=== PATIENT | male | born 1970 | race Caucasian/White ===

== ENCOUNTER 2019-08-20 05:07 | Inpatient (IN) | payer OTHER ==
[~2019-08-20] VITALS: Ht 182.9 cm; Wt 70.5 kg
[2019-08-20 05:28] LABS: BASO % 0 % (0-3); EOS % 0 % (0-3); HEMATOCRIT 44.3 % (39.0-53.0); HEMOGLOBIN 15.7 g/dL (13.0-17.5); LYMPH % 10 % (24-48); MEAN CORPUSCULAR HEMOGLOBIN 33 pg (25-35); MEAN CORPUSCULAR HGB CONC 35 g/dL (31-37); MEAN CORPUSCULAR VOLUME 94 fL (79-100); MONO # 0.4 x10^3/uL (0.0-1.1); MONO % 4 % (0-9); NEUT # 8.9 x10^3/uL (1.8-7.7); NEUT % 86 % (31-73); PLATELET COUNT 214 x10^3/uL (140-400); RED BLOOD COUNT 4.71 x10^6/uL (4.30-5.70); RED CELL DISTRIBUTION WIDTH 13.2 % (11.5-14.5); WHITE BLOOD COUNT 10.4 x10^3/uL (4.0-11.0)
--- NOTE | 2019-08-20 05:34 | PHYS DOC ---
General Adult EDM: Chief Complaint: HYPERTENSION HPI: HPI: Patient is a 48 year old male presenting to the ED with a chief complaint of numbness and tingling to his left upper extremity. Patient states that the symptoms started at 4:00 this morning. Patient states that he was at work and he went out for a small break when the symptoms started. Patient states that he has a history of high blood pressure but has not taken medication for the last 2 years as his PCP moved out of town. Patient denies chest pain, headache, fever, chills, nausea or vomiting. Patient does admit to being an active smoker and drinks alcohol frequently. (NINI ANN DO) Review of Systems: Review of Systems: Constitutional: Denies fever or chills. [] Eyes: Denies change in visual acuity. [] HENT: Denies nasal congestion or sore throat. [] Respiratory: Denies cough or shortness of breath. [] Cardiovascular: Denies chest pain or edema. [] GI: Denies abdominal pain, nausea, vomiting, bloody stools or diarrhea. [] : Denies dysuria. [] Neurologic: Complains of numbness and tingling in his left upper extremity (NINI ANN DO) Heart Score: Risk Factors: Risk Factors: DM, Current or recent (<one month) smoker, HTN, HLP, family history of CAD, obesity. Risk Scores: Score 0 - 3: 2.5% MACE over next 6 weeks - Discharge Home Score 4 - 6: 20.3% MACE over next 6 weeks - Admit for Clinical Observation Score 7 - 10: 72.7% MACE over next 6 weeks - Early Invasive Strategies (NINI ANN DO) HEART Score for Chest Pain: HEART Score for Chest Pain Response (Comments) Value History Moderately Suspicious 1 Age >45 - < 65 1 Risk Factors 1 or 2 Risk Factors 1 Troponin < Normal Limit 0 Total 3 Allergies: Allergies: Allergies Coded Allergies Type Severity Reaction Last Updated Verified No Known Drug Allergies 08/20/19 No (NINI ANN DO) Physical Exam: PE: Constitutional: Well developed, well nourished, no acute distress, non-toxic appearance. [] HENT: Normocephalic, atraumatic Eyes: EOMI Neck: Normal range of motion, Supple Cardiovascular:Heart rate regular rhythm Lungs & Thorax: Bilateral breath sounds clear to auscultation [] Abdomen: Bowel sounds normal, soft, no tenderness Extremities: No tenderness, ROM intact Neurologic: Alert and oriented X 3, patient does complain of numbness and tingling in his left upper extremity (NINI ANN DO) EKG: EKG: [EKG interpretation: 5: 21 AM on 08/20/2019 HR: 91 Sinus rhythm Regular intervals Leftward axis Nonspecific ST changes No STEMI ] (NINI ANN DO) Radiology/Procedures: Radiology/Procedures: [] (NINI ANN DO) Course & Med Decision Making: Course & Med Decision Making Pertinent Labs and Imaging studies reviewed. (See chart for details) EKG does not show any acute changes. Ordered chest x-ray, EKG, labs, troponin, CT head Patient CARE turned over to Dr. Bean at shift change. (NINI ANN DO) Course & Med Decision Making Patient is a 48-year-old male with history of hypertension, not on any hypertensive medication for several years. Presented with chest pain left arm numbness. Patient'S blood pressure continued to be elevated despite treatment in ER, will admit him to hospital for further evaluation and treatment (SAFIA BEAN DO) Dragon Disclaimer: Dragon Disclaimer: This electronic medical record was generated, in whole or in part, using a voice recognition dictation system. (NINI ANN DO) Departure Departure Impression: Primary Impression: Chest pain Additional Impression: Hypertension Disposition: ADMITTED INPATIENT Admitting Physician: VICTORIANO (DR. FUNEZ) (SAFIA BEAN DO) Condition: STABLE Justicifation of Admission Dx: Justifications for Admission: Justification of Admission Dx: Yes Hypertension: Symp at Rest (SAFIA BEAN DO) NINI ANN DO Aug 20, 2019 05:34 SAFIA BEAN DO Aug 20, 2019 08:11
[2019-08-20 05:36] LABS: PROTHROMBIN TIME PATIENT 12.6 SEC (11.7-14.0)
[2019-08-20 05:40] LABS: CALCIUM 8.2 mg/dL (8.5-10.1); GFR 80.4; POTASSIUM 3.4 mmol/L (3.5-5.1)
[2019-08-20 05:46] LABS: ALBUMIN 3.3 g/dL (3.4-5.0); ALBUMIN/GLOBULIN RATIO 0.9 (1.0-1.7); TOTAL BILIRUBIN 0.2 mg/dL (0.2-1.0); TOTAL PROTEIN 6.9 g/dL (6.4-8.2)
[2019-08-20 05:54] LABS: % LYMPHS 13 % (24-48); % MONOS 5 % (0-10); % SEGS 82 % (35-66); PLT ESTIMATE ADEQUATE (ADEQUATE)
[2019-08-20] MEDS ORDERED: hydrALAZINE 20 MG/ML VIAL. IVP ONE ×2 (06:00→06:15)
[2019-08-20 06:09] LABS: BILIRUBIN,URINE NEGATIVE (NEG); CLARITY,URINE CLEAR; COLOR,URINE YELLOW; NITRITE,URINE NEGATIVE (NEG); PROTEIN,URINE NEGATIVE (NEG-TRACE)
--- NOTE | 2019-08-20 06:12 | RAD ---
CHEST AP ONLY INDICATION: Reason: PAIN / Spl. Instructions: / History: . COMPARISON STUDY: None. FINDINGS: Lungs: Normal lung volume. No pulmonary mass or consolidation. The tracheobronchial tree and hilar structures are normal. Pleura: No pleural effusion or pneumothorax. Heart and Mediastinum: The cardiomediastinal silhouette is normal. Mild tortuosity of the thoracic aorta. IMPRESSION: No acute cardiopulmonary process. Electronically signed by: Romario Cohn MD (08/20/2019 6:09 AM) [facility]
--- NOTE | 2019-08-20 06:18 | RAD ---
CT HEAD WO CONTRAST Date: 08/20/2019 6:04 AM Clinical Indication: Reason: NUMBNESS / Spl. Instructions: / History: Comparison: None. Technique: 5 mm axial tomographic images were obtained of the head without contrast. These were viewed on brain and bone windows. One or more of the following dose reduction techniques were utilized: Automated exposure control (AEC), Adjustment of mA and/or kV according to patient size, Use of iterative reconstruction technique such as ASiR, CT scan done according to ALARA and image gently/image wisely Findings: Mild nonspecific periventricular. No intra- or extra-axial mass or fluid collection. No acute hemorrhage. The ventricles are normal in size, shape, and morphology. The rodarte-white matter junction is normal. The subarachnoid cisterns are patent. The visualized paranasal sinuses are normal. The visualized portions of the orbits and globes are normal. The mastoid air cells are clear. 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 Impression: No acute intracranial process. Mild nonspecific periventricular hypoattenuation, most commonly seen with chronic small vessel ischemic disease. Electronically signed by: Romario Cohn MD (08/20/2019 6:15 AM) [facility]
[2019-08-20 06:26] LABS: WBC,URINE OCC /HPF (0-4)
[2019-08-20 06:28] LABS: BACTERIA,URINE 0 /HPF (0-FEW); RBC,URINE 0 /HPF (0-2)
[2019-08-20 07:09] LABS: AMPHETAMINE/METHAMPHETAMINE NEG (NEG); BARBITURATES NEG (NEG); BENZODIAZEPINES NEG (NEG); CANNABINOIDS POS (NEG); COCAINE NEG (NEG); METHADONE NEG (NEG); OPIATES NEG (NEG); PHENCYCLIDINE NEG (NEG)
[2019-08-20] MEDS ORDERED: POTASSIUM CHLORIDE 10 MEQ TABLET.ER. PO ONE (07:15)
[2019-08-20] MEDS ORDERED: METOPROLOL TARTRATE 5 MG/5 ML VIAL. IVP ONE (07:30)
[2019-08-20] MEDS ORDERED: ASPIRIN CHEWABLE 81 MG TABLET. PO ONE (07:45)
[2019-08-20] MEDS ORDERED: ONDANSETRON PF 4 MG/2 ML VIAL. IV PRN (08:15)
[2019-08-20] MEDS ORDERED: NITROGLYCERIN SUBLINGUAL 0.4 MG BOTTLE OF 25. SL PRN (08:15)
[2019-08-20] MEDS ORDERED: POTASSIUM CHLORIDE 20 MEQ TABLET.ER. PO ONE (10:00)
[2019-08-20] MEDS ORDERED: amLODIPine BESYLATE 5 MG TABLET PO ONE (10:00)
--- NOTE | 2019-08-20 10:05 | EKG ---
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
[2019-08-20] MEDS ORDERED: cloNIDine HCL 0.1 MG TABLET PO PRN (10:15)
[2019-08-20 10:24] VITALS: BP 182/91
[2019-08-20 10:40] LABS: MAGNESIUM 1.5 mg/dL (1.8-2.4)
[2019-08-20 10:42] LABS: CHOLESTEROL/HDL RATIO 3.1
[2019-08-20] MEDS: MULTIVIT INFUSN,ADULT 4,VIT K 10 ML, THIAMINE INJ 100 MG, FOLIC ACID INJ 1 MG in IV NOR... IV SCH (10:51)
[2019-08-20] MEDS: PANTOPRAZOLE 40 MG TABLET.DR. PO SCH (10:52)
[2019-08-20] MEDS: ENOXAPARIN 40 MG/0.4 ML SYRINGE. SQ SCH (10:52)
[2019-08-20] MEDS ORDERED: amLODIPine BESYLATE 10 MG TABLET PO ONE (11:00)
[2019-08-20] MEDS ORDERED: MAGNESIUM SULFATE 2GM 50 ML IV ONE (11:45)
--- NOTE | 2019-08-20 13:05 | PDOC2 ---
FABIÁN WEBER CLINICAL DATA ANALYST 08/20/19 1305: CARDIAC CONSULT DATE OF CONSULT Date of Consult DATE: 08/20/19 TIME: 1000 REASON FOR CONSULT Reason for Consult: Chest pain REFERRING PHYSICIAN Referring Physician: Vikas SOURCE Source: Chart review, Patient HISTORY OF PRESENT ILLNESS HISTORY OF PRESENT ILLNESS This is a pleasant 48 yo male admitted for complains of chest pain. This is dull in the middle of his chest. No SOA but was anxious about having left arm numbness and tingling. He also had some intractable coughing fit and got nauseated during that bout. He had a fall yesterday as his vision just turned black and passed out with associated heavy ETOH drinks. He had a bottle of crown royal which he consumed in 2 days and also drinks about 6 beers daily. No associated palpitations, jaw discomfort. No prior CAD, VTE, or arrhythmias. No past prior syncopal spell. No hx of seizures, DM. He has not seen a PCP for about 1.5 y rs and that was about the last time he took lisinopril. He has been told before that he drinks to much. No exertional CP nor PATEL. PAST MEDICAL HISTORY Cardiovascular: HTN Pulmonary: No pertinent hx CENTRAL NERVOUS SYSTEM: Other (No pertinent history) GI: No pertinent hx Heme/Onc: No pertinent hx Hepatobiliary: No pertinent hx Psych: No pertinent hx Musculoskeletal: Osteoarthritis Rheumatologic: No pertinent hx Infectious disease: No pertinent hx ENT: No pertinent hx Renal/: No pertinent hx Endocrine: No pertinent hx Dermatology: No pertinent hx PAST SURGICAL HISTORY Past Surgical History: No pertinent history FAMILY HISTORY Family History: Hypertension SOCIAL HISTORY Smoke: 1 pack per day ALCOHOL: heavy Drugs: Marijuana Lives: Alone CURRENT MEDICATIONS CURRENT MEDICATIONS Current Medications Medications (Trade) Dose Ordered Sig/[place] Route PRN Reason Start Time Stop Time Status Last Admin Dose Admin Hydralazine HCl (Apresoline Inj) 10 mg 1X ONCE IVP 08/20/19 06:00 08/20/19 06:01 DC 08/20/19 05:59 Hydralazine HCl (Apresoline Inj) 10 mg 1X ONCE IVP 08/20/19 06:15 08/20/19 06:23 DC 08/20/19 06:15 Potassium Chloride (Klor-Con) 30 meq 1X ONCE PO 08/20/19 07:15 08/20/19 07:16 DC 08/20/19 06:48 Lorazepam (Ativan Inj) 1 mg 1X ONCE IVP 08/20/19 07:30 08/20/19 07:32 DC 08/20/19 07:54 Metoprolol Tartrate (Lopressor Vial) 5 mg 1X ONCE IVP 08/20/19 07:30 08/20/19 07:32 DC 08/20/19 07:55 Aspirin (Aspirin Chewable) 324 mg 1X ONCE PO 08/20/19 07:45 08/20/19 07:46 DC 08/20/19 07:54 Multivitamins 10 ml/Thiamine HCl 100 mg/Folic Acid 1 mg/Sodium Chloride 1,011.2 ml @ 100 mls/ hr DAILY IV 08/20/19 11:00 08/24/19 19:07 08/20/19 10:51 Potassium Chloride (Klor-Con) 40 meq 1X ONCE PO 08/20/19 10:00 08/20/19 10:05 DC 08/20/19 10:52 Enoxaparin Sodium (Lovenox 40mg Syringe) 40 mg Q24H SQ 08/20/19 11:00 08/20/19 10:52 Amlodipine Besylate (Norvasc) 10 mg 1X ONCE PO 08/20/19 11:00 08/20/19 11:01 DC 08/20/19 10:52 Pantoprazole Sodium (Protonix) 40 mg DAILYAC PO 08/20/19 11:30 08/20/19 10:52 ALLERGIES ALLERGIES: Coded Allergies: No Known Drug Allergies (Unverified , 08/20/19) ROS Review of System 14 point ROS evaluated with pertinent positives noted per HPI PHYSICAL EXAM General: Alert, Oriented X3, Cooperative, No acute distress HEENT: Atraumatic, Mucous membr. moist/pink Lungs: Clear to auscultation, Normal air movement Heart: Regular rate (SR), Normal S1, Normal S2, No murmurs Abdomen: Soft, No tenderness Extremities: No cyanosis, No edema Skin: No breakdown, No significant lesion Neuro: Normal speech, Sensation intact, Other (hand fine tremors) Psych/Mental Status: Mental status NL, Mood NL MUSCULOSKELETAL: Osteoarthritic changes both hands VITALS/I&O VITALS/I&O: Vital Signs Date Time Temp Pulse Resp B/P (MAP) Pulse Ox O2 Delivery O2 Flow Rate FiO2 7/7/20 11:21 Room Air 08/20/19 10:52 79 182/91 08/20/19 10:24 98.5 18 99 98.5 LABS Lab: Laboratory Tests Test 08/20/19 05:18 08/20/19 05:55 White Blood Count 10.4 x10^3/uL (4.0-11.0) Red Blood Count 4.71 x10^6/uL (4.30-5.70) Hemoglobin 15.7 g/dL (13.0-17.5) Hematocrit 44.3 % (39.0-53.0) Mean Corpuscular Volume 94 fL (79-100) Mean Corpuscular Hemoglobin 33 pg (25-35) Mean Corpuscular Hemoglobin Concent 35 g/dL (31-37) Red Cell Distribution Width 13.2 % (11.5-14.5) Platelet Count 214 x10^3/uL (140-400) Neutrophils (%) (Auto) 86 % (31-73) H Lymphocytes (%) (Auto) 10 % (24-48) L Monocytes (%) (Auto) 4 % (0-9) Eosinophils (%) (Auto) 0 % (0-3) Basophils (%) (Auto) 0 % (0-3) Neutrophils # (Auto) 8.9 x10^3/uL (1.8-7.7) H Lymphocytes # (Auto) 1.0 x10^3/uL (1.0-4.8) Monocytes # (Auto) 0.4 x10^3/uL (0.0-1.1) Eosinophils # (Auto) 0.0 x10^3/uL (0.0-0.7) Basophils # (Auto) 0.0 x10^3/uL (0.0-0.2) Segmented Neutrophils % 82 % (35-66) H Lymphocytes % 13 % (24-48) L Monocytes % 5 % (0-10) Platelet Estimate Adequate (ADEQUATE) Prothrombin Time 12.6 SEC (11.7-14.0) Prothrombin Time INR 1.0 (0.8-1.1) Sodium Level 129 mmol/L (136-145) L Potassium Level 3.4 mmol/L (3.5-5.1) L Chloride Level 91 mmol/L (98-107) L Carbon Dioxide Level 23 mmol/L (21-32) Anion Gap 15 (6-14) H Blood Urea Nitrogen 3 mg/dL (8-26) L Creatinine 1.0 mg/dL (0.7-1.3) Estimated GFR (Cockcroft-Gault) 80.4 BUN/Creatinine Ratio 3 (6-20) L Glucose Level 128 mg/dL (70-99) H Calcium Level 8.2 mg/dL (8.5-10.1) L Magnesium Level 1.5 mg/dL (1.8-2.4) L Total Bilirubin 0.2 mg/dL (0.2-1.0) Aspartate Amino Transferase (AST) 58 U/L (15-37) H Alanine Aminotransferase (ALT) 58 U/L (16-63) Alkaline Phosphatase 85 U/L (46-116) Troponin I Quantitative < 0.017 ng/mL (0.000-0.055) FG-Aec-N-Type Natriuretic Peptide 50 pg/mL (0-124) Total Protein 6.9 g/dL (6.4-8.2) Albumin 3.3 g/dL (3.4-5.0) L Albumin/Globulin Ratio 0.9 (1.0-1.7) L Triglycerides Level 64 mg/dL (0-150) Cholesterol Level 144 mg/dL (0-200) LDL Cholesterol, Calculated 84 mg/dL (0-100) VLDL Cholesterol, Calculated 13 mg/dL (0-40) Non-HDL Cholesterol Calculated 97 mg/dL (0-129) HDL Cholesterol 47 mg/dL (40-60) Cholesterol/HDL Ratio 3.1 Lipase 180 U/L (73-393) Thyroid Stimulating Hormone (TSH) 3.775 uIU/mL (0.358-3.74) H Urine Collection Type Unknown Urine Color Yellow Urine Clarity Clear Urine pH 7.0 (<5.0-8.0) Urine Specific [place] 1.015 (1.000-1.030) Urine Protein Negative mg/dL (NEG-TRACE) Urine Glucose (UA) Negative mg/dL (NEG) Urine Ketones (Stick) Negative mg/dL (NEG) Urine Blood Negative (NEG) Urine Nitrite Negative (NEG) Urine Bilirubin Negative (NEG) Urine Urobilinogen Dipstick 1.0 mg/dL (0.2 mg/dL) Urine Leukocyte Esterase Negative (NEG) Urine RBC 0 /HPF (0-2) Urine WBC Occ /HPF (0-4) Urine Bacteria 0 /HPF (0-FEW) Urine Mucus Slight /LPF Urine Opiates Screen Neg (NEG) Urine Methadone Screen Neg (NEG) Urine Barbiturates Neg (NEG) Urine Phencyclidine Screen Neg (NEG) Urine Amphetamine/Methamphetamine Neg (NEG) Urine Benzodiazepines Screen Neg (NEG) Urine Cocaine Screen Neg (NEG) Urine Cannabinoids Screen Pos (NEG) Urine Ethyl Alcohol Pos (NEG) Laboratory Tests 08/20/19 05:18 Laboratory Tests 08/20/19 05:18 ASSESSMENT/PLAN ASSESSMENT/PLAN 1. Chest pain: mixed features. possibly from uncontrolled and ETOH related GI irritation 2. HTN urgency: last use of lisinopril was 1.5 yrs ago 3. Alcohol abuse: +for binge latricia liqour and daily 6 pack beer 4. Tobaccoism 5. Marijuana use 6. Hypomagnesemia/hyponatremia/hypokalemia 7. Anion gap metabolic acidosis: r/t ETOH 8. Syncope with nontraumatic fall: possibly from HTN enceophalopathy and ETOH abuse. Recommendations 1. CIWA protocol per PCP 2. Discussed lifestyle modifications 3. Agree with norvasc. Clonidine PRN 4. IV hydrate. Replace Mg, Start on PPI 5. TTE. Will consider for outpt stress test. Obtain lipids and TSH. ALKA SANDOVAL MD 08/20/19 1541: CARDIAC CONSULT ASSESSMENT/PLAN ASSESSMENT/PLAN Patient seen and examined. Agree with above nurse practitioner note. Supportive care. Await TTE. FABIÁN WEBER CLINICAL DATA ANALYST Aug 20, 2019 13:05 ALKA SANDOVAL MD Aug 20, 2019 15:41
[2019-08-20] MEDS: NICOTINE 14MG PATCH. TD SCH (13:34)
--- NOTE | 2019-08-20 13:40 | PDOC1 ---
History and Physical Date of Admission Date of Admission DATE: 08/20/19 TIME: 13:36 Source Source: Chart review, Patient History of Present Illness History of Present Illness MR. 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 Patient states that he has a history of high blood pressure but has not taken medication for the last 2 years as his PCP moved out of town. recent life change, his left him, Patient does admit to being an active smoker and drinks alcohol daily, Past Medical History Cardiovascular: HTN Pulmonary: No pertinent hx CENTRAL NERVOUS SYSTEM: Other (No pertinent history) GI: No pertinent hx Heme/Onc: No pertinent hx Hepatobiliary: No pertinent hx Psych: No pertinent hx Musculoskeletal: Osteoarthritis Rheumatologic: No pertinent hx Infectious disease: No pertinent hx ENT: No pertinent hx Renal/: No pertinent hx Endocrine: No pertinent hx Dermatology: No pertinent hx Past Surgical History Past Surgical History: No pertinent history Family History Family History: Hypertension Social History Smoke: 1 pack per day ALCOHOL: heavy Drugs: Marijuana Current Problem List Problem List Problems Medical Problems: (1) Chest pain Status: Acute (2) Hypertension Status: Acute Current Medications Current Medications Current Medications Hydralazine HCl (Apresoline Inj) 10 mg 1X ONCE IVP Last administered on 08/20/19at 05:59; Start 08/20/19 at 06:00; Stop 08/20/19 at 06:01; Status DC Hydralazine HCl (Apresoline Inj) 10 mg 1X ONCE IVP Last administered on 08/20/19at 06:15; Start 08/20/19 at 06:15; Stop 08/20/19 at 06:23; Status DC Potassium Chloride (Klor-Con) 30 meq 1X ONCE PO Last administered on 08/20/19at 06:48; Start 08/20/19 at 07:15; Stop 08/20/19 at 07:16; Status DC Lorazepam (Ativan Inj) 1 mg 1X ONCE IVP Last administered on 08/20/19at 07:54; Start 08/20/19 at 07:30; Stop 08/20/19 at 07:32; Status DC Metoprolol Tartrate (Lopressor Vial) 5 mg 1X ONCE IVP Last administered on 08/20/19at 07:55; Start 08/20/19 at 07:30; Stop 08/20/19 at 07:32; Status DC Aspirin (Aspirin Chewable) 324 mg 1X ONCE PO Last administered on 08/20/19at 07:54; Start 08/20/19 at 07:45; Stop 08/20/19 at 07:46; Status DC Ondansetron HCl (Zofran) 4 mg PRN Q8HRS PRN IV NAUSEA/VOMITING; Start 08/20/19 at 08:15; Stop 08/21/19 at 08:14 Nitroglycerin (Nitrostat) 0.4 mg PRN Q5MIN PRN SL CHEST PAIN; Start 08/20/19 at 08:15; Stop 08/21/19 at 08:14 Amlodipine Besylate (Norvasc) 5 mg 1X ONCE PO ; Start 08/20/19 at 10:00; Stop 08/20/19 at 10:17; Status DC Amlodipine Besylate (Norvasc) 5 mg DAILY PO ; Start 08/21/19 at 09:00; Stop 08/20/19 at 10:17; Status DC Multivitamins 10 ml/Thiamine HCl 100 mg/Folic Acid 1 mg/Sodium Chloride 1,011.2 ml @ 100 mls/ hr DAILY IV Last administered on 08/20/19at 10:51; Start 08/20/19 at 11:00; Stop 08/24/19 at 19:07 Lorazepam (Ativan Inj) 2 mg PRN Q1HR PRN IV For CIWA 8-14; Start 08/20/19 at 10:00 Lorazepam (Ativan Inj) 4 mg PRN Q1HR PRN IV For CIWA 15 or greater; Start 08/20/19 at 10:00 Potassium Chloride (Klor-Con) 40 meq 1X ONCE PO Last administered on 08/20/19at 10:52; Start 08/20/19 at 10:00; Stop 08/20/19 at 10:05; Status DC Enoxaparin Sodium (Lovenox Per Pharmacy Prophylaxis Dosing) 1 each PRN DAILY PRN MC SEE COMMENTS; Start 08/20/19 at 10:00 Enoxaparin Sodium (Lovenox 40mg Syringe) 40 mg Q24H SQ Last administered on 08/20/19at 10:52; Start 08/20/19 at 11:00 Clonidine HCl (Catapres) 0.1 mg PRN Q1HR PRN PO HYPERTENSION; Start 08/20/19 at 10:15 Amlodipine Besylate (Norvasc) 10 mg DAILY PO ; Start 08/21/19 at 09:00 Amlodipine Besylate (Norvasc) 10 mg 1X ONCE PO Last administered on 08/20/19at 10:52; Start 08/20/19 at 11:00; Stop 08/20/19 at 11:01; Status DC Pantoprazole Sodium (Protonix) 40 mg DAILYAC PO Last administered on 08/20/19at 10:52; Start 08/20/19 at 11:30 Magnesium Sulfate 50 ml @ 25 mls/hr 1X ONCE IV Last administered on 08/20/19at 13:05; Start 08/20/19 at 11:45; Stop 08/20/19 at 13:44 Nicotine (Nicoderm Cq 14mg) 1 patch DAILY TD Last administered on 08/20/19at 13:34; Start 08/20/19 at 14:00 Allergies Allergies: Coded Allergies: No Known Drug Allergies (Unverified , 08/20/19) ROS General: No: Night Sweats, Fatigue, Malaise, Appetite, Other PSYCHOLOGICAL ROS: YES: Anxiety, Irritablity, Sleep disturbances; No: Behavioral Disorder, Concentration difficultie, Decreased libido, Depression, Disorientation, Hallucinations, Hostility, Memory difficulties, Mood Swings, Obsessive thoughts, Suicidal ideation, Other HEENT: No: Heacaches, Visual Changes, Hearing change, Nasal congestion, Nasal discharge, Oral lesions, Sinus pain, Sore Throat, Epistaxis, Sneezing, Snoring, Tinnitus, Vertigo, Vocal changes, Other Respiratory: No: Cough, Hemoptysis, Orthopnea, Pleuritic Pain, Shortness of breath, SOB with excertion, Sputum Changes, Stridor, Tachypnea, Wheezing, Other Cardiovascular: No Chest Pain, No Palpitations, No Orthopnea, No Paroxysmal Noc. Dyspnea, No Edema, No Lt Headedness, No Other Gastrointestinal: No Nausea, No Vomiting, No Abdominal Pain, No Diarrhea, No Constipation, No Melena, No Hematochezia, No Other Genitourinary: No Dysuria, No Frequency, No Incontinence, No Hematuria, No Retention, No Discharge, No Urgency, No Pain, No Flank Pain, No Other, No , No , No , No , No , No , No Musculoskeletal: Yes Joint Stiffness, Yes Muscle Pain (arm) Neurological: Yes Numbness/Tingling; No Behavorial Changes, No Bowel/Bladder ControlChng, No Confusion, No Dizziness, No Gait Disturbance, No Headaches, No Impaired Coord/balance, No Memory Loss, No Seizures, No Speech Problems, No Tremors, No Visual Changes, No Weakness, No Other Skin: Yes Dry Skin; No Eczema, No Hair Changes, No Lumps, No Mole Changes, No Mottling, No Nail Changes, No Pruritus, No Rash, No Skin Lesion Changes, No Other, No Acne Physical Exam General: Alert, Oriented X3, Cooperative, No acute distress HEENT: Atraumatic, Mucous membr. moist/pink Lungs: Clear to auscultation Heart: S1S2, RRR, no gallops, no murmurs Extremities: No cyanosis, No edema Neuro: Normal gait, Normal speech, Sensation intact, Cranial nerves 3-12 NL Psych/Mental Status: Mental status NL, Mood NL Vitals Vitals Vital Signs Date Time Temp Pulse Resp B/P (MAP) Pulse Ox O2 Delivery O2 Flow Rate FiO2 08/20/19 11:21 Room Air 08/20/19 10:52 79 182/91 08/20/19 10:24 98.5 18 99 98.5 Labs Labs Laboratory Tests Test 08/20/19 05:18 08/20/19 05:55 08/20/19 12:40 White Blood Count 10.4 x10^3/uL (4.0-11.0) Red Blood Count 4.71 x10^6/uL (4.30-5.70) Hemoglobin 15.7 g/dL (13.0-17.5) Hematocrit 44.3 % (39.0-53.0) Mean Corpuscular Volume 94 fL (79-100) Mean Corpuscular Hemoglobin 33 pg (25-35) Mean Corpuscular Hemoglobin Concent 35 g/dL (31-37) Red Cell Distribution Width 13.2 % (11.5-14.5) Platelet Count 214 x10^3/uL (140-400) Neutrophils (%) (Auto) 86 % (31-73) Lymphocytes (%) (Auto) 10 % (24-48) Monocytes (%) (Auto) 4 % (0-9) Eosinophils (%) (Auto) 0 % (0-3) Basophils (%) (Auto) 0 % (0-3) Neutrophils # (Auto) 8.9 x10^3/uL (1.8-7.7) Lymphocytes # (Auto) 1.0 x10^3/uL (1.0-4.8) Monocytes # (Auto) 0.4 x10^3/uL (0.0-1.1) Eosinophils # (Auto) 0.0 x10^3/uL (0.0-0.7) Basophils # (Auto) 0.0 x10^3/uL (0.0-0.2) Segmented Neutrophils % 82 % (35-66) Lymphocytes % 13 % (24-48) Monocytes % 5 % (0-10) Platelet Estimate Adequate (ADEQUATE) Prothrombin Time 12.6 SEC (11.7-14.0) Prothromb Time International Ratio 1.0 (0.8-1.1) Sodium Level 129 mmol/L (136-145) Potassium Level 3.4 mmol/L (3.5-5.1) Chloride Level 91 mmol/L (98-107) Carbon Dioxide Level 23 mmol/L (21-32) Anion Gap 15 (6-14) Blood Urea Nitrogen 3 mg/dL (8-26) Creatinine 1.0 mg/dL (0.7-1.3) Estimated GFR (Cockcroft-Gault) 80.4 BUN/Creatinine Ratio 3 (6-20) Glucose Level 128 mg/dL (70-99) Calcium Level 8.2 mg/dL (8.5-10.1) Magnesium Level 1.5 mg/dL (1.8-2.4) Total Bilirubin 0.2 mg/dL (0.2-1.0) Aspartate Amino Transf (AST/SGOT) 58 U/L (15-37) Alanine Aminotransferase (ALT/SGPT) 58 U/L (16-63) Alkaline Phosphatase 85 U/L (46-116) Troponin I Quantitative < 0.017 ng/mL (0.000-0.055) < 0.017 ng/mL (0.000-0.055) HI-Ndf-W-Type Natriuretic Peptide 50 pg/mL (0-124) Total Protein 6.9 g/dL (6.4-8.2) Albumin 3.3 g/dL (3.4-5.0) Albumin/Globulin Ratio 0.9 (1.0-1.7) Triglycerides Level 64 mg/dL (0-150) Cholesterol Level 144 mg/dL (0-200) LDL Cholesterol, Calculated 84 mg/dL (0-100) VLDL Cholesterol, Calculated 13 mg/dL (0-40) Non-HDL Cholesterol Calculated 97 mg/dL (0-129) HDL Cholesterol 47 mg/dL (40-60) Cholesterol/HDL Ratio 3.1 Lipase 180 U/L (73-393) Thyroid Stimulating Hormone (TSH) 3.775 uIU/mL (0.358-3.74) Urine Collection Type Unknown Urine Color Yellow Urine Clarity Clear Urine pH 7.0 (<5.0-8.0) Urine Specific [place] 1.015 (1.000-1.030) Urine Protein Negative mg/dL (NEG-TRACE) Urine Glucose (UA) Negative mg/dL (NEG) Urine Ketones (Stick) Negative mg/dL (NEG) Urine Blood Negative (NEG) Urine Nitrite Negative (NEG) Urine Bilirubin Negative (NEG) Urine Urobilinogen Dipstick 1.0 mg/dL (0.2 mg/dL) Urine Leukocyte Esterase Negative (NEG) Urine RBC 0 /HPF (0-2) Urine WBC Occ /HPF (0-4) Urine Bacteria 0 /HPF (0-FEW) Urine Mucus Slight /LPF Urine Opiates Screen Neg (NEG) Urine Methadone Screen Neg (NEG) Urine Barbiturates Neg (NEG) Urine Phencyclidine Screen Neg (NEG) Urine Amphetamine/Methamphetamine Neg (NEG) Urine Benzodiazepines Screen Neg (NEG) Urine Cocaine Screen Neg (NEG) Urine Cannabinoids Screen Pos (NEG) Urine Ethyl Alcohol Pos (NEG) Laboratory Tests Test 08/20/19 05:18 08/20/19 05:55 08/20/19 12:40 White Blood Count 10.4 x10^3/uL (4.0-11.0) Red Blood Count 4.71 x10^6/uL (4.30-5.70) Hemoglobin 15.7 g/dL (13.0-17.5) Hematocrit 44.3 % (39.0-53.0) Mean Corpuscular Volume 94 fL (79-100) Mean Corpuscular Hemoglobin 33 pg (25-35) Mean Corpuscular Hemoglobin Concent 35 g/dL (31-37) Red Cell Distribution Width 13.2 % (11.5-14.5) Platelet Count 214 x10^3/uL (140-400) Neutrophils (%) (Auto) 86 % (31-73) Lymphocytes (%) (Auto) 10 % (24-48) Monocytes (%) (Auto) 4 % (0-9) Eosinophils (%) (Auto) 0 % (0-3) Basophils (%) (Auto) 0 % (0-3) Neutrophils # (Auto) 8.9 x10^3/uL (1.8-7.7) Lymphocytes # (Auto) 1.0 x10^3/uL (1.0-4.8) Monocytes # (Auto) 0.4 x10^3/uL (0.0-1.1) Eosinophils # (Auto) 0.0 x10^3/uL (0.0-0.7) Basophils # (Auto) 0.0 x10^3/uL (0.0-0.2) Segmented Neutrophils % 82 % (35-66) Lymphocytes % 13 % (24-48) Monocytes % 5 % (0-10) Platelet Estimate Adequate (ADEQUATE) Prothrombin Time 12.6 SEC (11.7-14.0) Prothromb Time International Ratio 1.0 (0.8-1.1) Sodium Level 129 mmol/L (136-145) Potassium Level 3.4 mmol/L (3.5-5.1) Chloride Level 91 mmol/L (98-107) Carbon Dioxide Level 23 mmol/L (21-32) Anion Gap 15 (6-14) Blood Urea Nitrogen 3 mg/dL (8-26) Creatinine 1.0 mg/dL (0.7-1.3) Estimated GFR (Cockcroft-Gault) 80.4 BUN/Creatinine Ratio 3 (6-20) Glucose Level 128 mg/dL (70-99) Calcium Level 8.2 mg/dL (8.5-10.1) Magnesium Level 1.5 mg/dL (1.8-2.4) Total Bilirubin 0.2 mg/dL (0.2-1.0) Aspartate Amino Transf (AST/SGOT) 58 U/L (15-37) Alanine Aminotransferase (ALT/SGPT) 58 U/L (16-63) Alkaline Phosphatase 85 U/L (46-116) Troponin I Quantitative < 0.017 ng/mL (0.000-0.055) < 0.017 ng/mL (0.000-0.055) VM-Glu-V-Type Natriuretic Peptide 50 pg/mL (0-124) Total Protein 6.9 g/dL (6.4-8.2) Albumin 3.3 g/dL (3.4-5.0) Albumin/Globulin Ratio 0.9 (1.0-1.7) Triglycerides Level 64 mg/dL (0-150) Cholesterol Level 144 mg/dL (0-200) LDL Cholesterol, Calculated 84 mg/dL (0-100) VLDL Cholesterol, Calculated 13 mg/dL (0-40) Non-HDL Cholesterol Calculated 97 mg/dL (0-129) HDL Cholesterol 47 mg/dL (40-60) Cholesterol/HDL Ratio 3.1 Lipase 180 U/L (73-393) Thyroid Stimulating Hormone (TSH) 3.775 uIU/mL (0.358-3.74) Urine Collection Type Unknown Urine Color Yellow Urine Clarity Clear Urine pH 7.0 (<5.0-8.0) Urine Specific [place] 1.015 (1.000-1.030) Urine Protein Negative mg/dL (NEG-TRACE) Urine Glucose (UA) Negative mg/dL (NEG) Urine Ketones (Stick) Negative mg/dL (NEG) Urine Blood Negative (NEG) Urine Nitrite Negative (NEG) Urine Bilirubin Negative (NEG) Urine Urobilinogen Dipstick 1.0 mg/dL (0.2 mg/dL) Urine Leukocyte Esterase Negative (NEG) Urine RBC 0 /HPF (0-2) Urine WBC Occ /HPF (0-4) Urine Bacteria 0 /HPF (0-FEW) Urine Mucus Slight /LPF Urine Opiates Screen Neg (NEG) Urine Methadone Screen Neg (NEG) Urine Barbiturates Neg (NEG) Urine Phencyclidine Screen Neg (NEG) Urine Amphetamine/Methamphetamine Neg (NEG) Urine Benzodiazepines Screen Neg (NEG) Urine Cocaine Screen Neg (NEG) Urine Cannabinoids Screen Pos (NEG) Urine Ethyl Alcohol Pos (NEG) VTE Prophylaxis Ordered VTE Prophylaxis Devices: No VTE Pharmacological Prophylaxi: Yes Assessment/Plan Assessment/Plan left arm tingling and weakness accelerated htn arm pain, r/o acs, consult CV anxiety disorder, no meds, self medicating substance abuse disorder, very heavy daily alcohol use adjustment disorder, his just left him, likely due to alcohol use, which has resulted in more alcohol use tobacco use disorder admit, CV consult Justicifation of Admission Dx: Justifications for Admission: Justification of Admission Dx: Yes Hypertension: [facility] at [facility] YEHUDA FUNEZ MD Aug 20, 2019 13:40
[2019-08-20 14:41] VITALS: BP 144/99
[2019-08-20 19:15] VITALS: BP 165/99
[2019-08-20 23:05] VITALS: BP 139/97
[2019-08-21 03:30] VITALS: BP 159/105
[2019-08-21 05:23] LABS: CALCIUM 8.4 mg/dL (8.5-10.1); GFR 80.4; POTASSIUM 4.8 mmol/L (3.5-5.1)
[2019-08-21 07:00] VITALS: BP 150/105
--- NOTE | 2019-08-21 08:28 | PDOC ---
PROGRESS NOTES Chief Complaint Chief Complaint A/P: left arm tingling and weakness accelerated htn arm pain, r/o acs, consult CV anxiety disorder, no meds, self medicating substance abuse disorder, very heavy daily alcohol use adjustment disorder, his just left him, likely due to alcohol use, which has resulted in more alcohol use tobacco use disorder History of Present Illness History of Present Illness MR. Gilmore, is a 48 yo M w/ PMHx smoker, HTN admit from ER for new numbness and tingling to his left upper arm. 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 He went out for a small break of nicotine when the symptoms started. Patient states that he has a history of high blood pressure but has not taken medication for the last 2 years as his PCP moved out of town. Recent life change, his left him in the last 4 months and his car broke down, and he commutes from [place], [place] to [place] for work. Patient does admit to being an active smoker and drinks alcohol daily. Numbness and tingling resolved. Troponin x3- EKG WNL BP improved with initiation of amlodipine. His chest pain resolved with initiation of pantoprazole. He had echocardiogram this morning and is a bit anxious to leave the hospital not he feels improved. Vitals Vitals Vital Signs Date Time Temp Pulse Resp B/P (MAP) Pulse Ox O2 Delivery O2 Flow Rate FiO2 08/21/19 07:00 97.9 86 18 150/105 (120) 97 Room Air 97.9 Physical Exam General: Alert, Oriented X3, Cooperative, No acute distress Heart: Regular rate (SR), Normal S1, Normal S2, No murmurs Abdomen: Soft, No tenderness Extremities: No cyanosis, No edema Skin: No breakdown, No significant lesion Labs LABS Laboratory Tests Test 08/20/19 12:40 08/20/19 18:25 08/21/19 00:10 08/21/19 04:07 Troponin I Quantitative < 0.017 ng/mL (0.000-0.055) < 0.017 ng/mL (0.000-0.055) < 0.017 ng/mL (0.000-0.055) Sodium Level 136 mmol/L (136-145) Potassium Level 4.8 mmol/L (3.5-5.1) Chloride Level 100 mmol/L (98-107) Carbon Dioxide Level 29 mmol/L (21-32) Anion Gap 7 (6-14) Blood Urea Nitrogen 10 mg/dL (8-26) Creatinine 1.0 mg/dL (0.7-1.3) Estimated GFR (Cockcroft-Gault) 80.4 Glucose Level 86 mg/dL (70-99) Calcium Level 8.4 mg/dL (8.5-10.1) Assessment and Plan Assessmemt and Plan Problems Medical Problems: (1) Chest pain Status: Acute (2) Hypertension Status: Acute Comment Review of Relevant I have reviewed the following items brianne (where applicable) has been applied. Labs Laboratory Tests Test 08/20/19 05:18 08/20/19 05:55 08/20/19 12:40 08/20/19 18:25 White Blood Count 10.4 x10^3/uL (4.0-11.0) Red Blood Count 4.71 x10^6/uL (4.30-5.70) Hemoglobin 15.7 g/dL (13.0-17.5) Hematocrit 44.3 % (39.0-53.0) Mean Corpuscular Volume 94 fL (79-100) Mean Corpuscular Hemoglobin 33 pg (25-35) Mean Corpuscular Hemoglobin Concent 35 g/dL (31-37) Red Cell Distribution Width 13.2 % (11.5-14.5) Platelet Count 214 x10^3/uL (140-400) Neutrophils (%) (Auto) 86 % (31-73) Lymphocytes (%) (Auto) 10 % (24-48) Monocytes (%) (Auto) 4 % (0-9) Eosinophils (%) (Auto) 0 % (0-3) Basophils (%) (Auto) 0 % (0-3) Neutrophils # (Auto) 8.9 x10^3/uL (1.8-7.7) Lymphocytes # (Auto) 1.0 x10^3/uL (1.0-4.8) Monocytes # (Auto) 0.4 x10^3/uL (0.0-1.1) Eosinophils # (Auto) 0.0 x10^3/uL (0.0-0.7) Basophils # (Auto) 0.0 x10^3/uL (0.0-0.2) Segmented Neutrophils % 82 % (35-66) Lymphocytes % 13 % (24-48) Monocytes % 5 % (0-10) Platelet Estimate Adequate (ADEQUATE) Prothrombin Time 12.6 SEC (11.7-14.0) Prothromb Time International Ratio 1.0 (0.8-1.1) Sodium Level 129 mmol/L (136-145) Potassium Level 3.4 mmol/L (3.5-5.1) Chloride Level 91 mmol/L (98-107) Carbon Dioxide Level 23 mmol/L (21-32) Anion Gap 15 (6-14) Blood Urea Nitrogen 3 mg/dL (8-26) Creatinine 1.0 mg/dL (0.7-1.3) Estimated GFR (Cockcroft-Gault) 80.4 BUN/Creatinine Ratio 3 (6-20) Glucose Level 128 mg/dL (70-99) Calcium Level 8.2 mg/dL (8.5-10.1) Magnesium Level 1.5 mg/dL (1.8-2.4) Total Bilirubin 0.2 mg/dL (0.2-1.0) Aspartate Amino Transf (AST/SGOT) 58 U/L (15-37) Alanine Aminotransferase (ALT/SGPT) 58 U/L (16-63) Alkaline Phosphatase 85 U/L (46-116) Troponin I Quantitative < 0.017 ng/mL (0.000-0.055) < 0.017 ng/mL (0.000-0.055) < 0.017 ng/mL (0.000-0.055) ZG-Xsb-M-Type Natriuretic Peptide 50 pg/mL (0-124) Total Protein 6.9 g/dL (6.4-8.2) Albumin 3.3 g/dL (3.4-5.0) Albumin/Globulin Ratio 0.9 (1.0-1.7) Triglycerides Level 64 mg/dL (0-150) Cholesterol Level 144 mg/dL (0-200) LDL Cholesterol, Calculated 84 mg/dL (0-100) VLDL Cholesterol, Calculated 13 mg/dL (0-40) Non-HDL Cholesterol Calculated 97 mg/dL (0-129) HDL Cholesterol 47 mg/dL (40-60) Cholesterol/HDL Ratio 3.1 Lipase 180 U/L (73-393) Thyroid Stimulating Hormone (TSH) 3.775 uIU/mL (0.358-3.74) Urine Collection Type Unknown Urine Color Yellow Urine Clarity Clear Urine pH 7.0 (<5.0-8.0) Urine Specific [place] 1.015 (1.000-1.030) Urine Protein Negative mg/dL (NEG-TRACE) Urine Glucose (UA) Negative mg/dL (NEG) Urine Ketones (Stick) Negative mg/dL (NEG) Urine Blood Negative (NEG) Urine Nitrite Negative (NEG) Urine Bilirubin Negative (NEG) Urine Urobilinogen Dipstick 1.0 mg/dL (0.2 mg/dL) Urine Leukocyte Esterase Negative (NEG) Urine RBC 0 /HPF (0-2) Urine WBC Occ /HPF (0-4) Urine Bacteria 0 /HPF (0-FEW) Urine Mucus Slight /LPF Urine Opiates Screen Neg (NEG) Urine Methadone Screen Neg (NEG) Urine Barbiturates Neg (NEG) Urine Phencyclidine Screen Neg (NEG) Urine Amphetamine/Methamphetamine Neg (NEG) Urine Benzodiazepines Screen Neg (NEG) Urine Cocaine Screen Neg (NEG) Urine Cannabinoids Screen Pos (NEG) Urine Ethyl Alcohol Pos (NEG) Test 08/21/19 00:10 08/21/19 04:07 Troponin I Quantitative < 0.017 ng/mL (0.000-0.055) Sodium Level 136 mmol/L (136-145) Potassium Level 4.8 mmol/L (3.5-5.1) Chloride Level 100 mmol/L (98-107) Carbon Dioxide Level 29 mmol/L (21-32) Anion Gap 7 (6-14) Blood Urea Nitrogen 10 mg/dL (8-26) Creatinine 1.0 mg/dL (0.7-1.3) Estimated GFR (Cockcroft-Gault) 80.4 Glucose Level 86 mg/dL (70-99) Calcium Level 8.4 mg/dL (8.5-10.1) Laboratory Tests Test 08/20/19 12:40 08/20/19 18:25 08/21/19 00:10 08/21/19 04:07 Troponin I Quantitative < 0.017 ng/mL (0.000-0.055) < 0.017 ng/mL (0.000-0.055) < 0.017 ng/mL (0.000-0.055) Sodium Level 136 mmol/L (136-145) Potassium Level 4.8 mmol/L (3.5-5.1) Chloride Level 100 mmol/L (98-107) Carbon Dioxide Level 29 mmol/L (21-32) Anion Gap 7 (6-14) Blood Urea Nitrogen 10 mg/dL (8-26) Creatinine 1.0 mg/dL (0.7-1.3) Estimated GFR (Cockcroft-Gault) 80.4 Glucose Level 86 mg/dL (70-99) Calcium Level 8.4 mg/dL (8.5-10.1) Medications Current Medications Hydralazine HCl (Apresoline Inj) 10 mg 1X ONCE IVP Last administered on 08/20/19at 05:59; Start 08/20/19 at 06:00; Stop 08/20/19 at 06:01; Status DC Hydralazine HCl (Apresoline Inj) 10 mg 1X ONCE IVP Last administered on 08/20/19at 06:15; Start 08/20/19 at 06:15; Stop 08/20/19 at 06:23; Status DC Potassium Chloride (Klor-Con) 30 meq 1X ONCE PO Last administered on 08/20/19at 06:48; Start 08/20/19 at 07:15; Stop 08/20/19 at 07:16; Status DC Lorazepam (Ativan Inj) 1 mg 1X ONCE IVP Last administered on 08/20/19at 07:54; Start 08/20/19 at 07:30; Stop 08/20/19 at 07:32; Status DC Metoprolol Tartrate (Lopressor Vial) 5 mg 1X ONCE IVP Last administered on 08/20/19at 07:55; Start 08/20/19 at 07:30; Stop 08/20/19 at 07:32; Status DC Aspirin (Aspirin Chewable) 324 mg 1X ONCE PO Last administered on 08/20/19at 07:54; Start 08/20/19 at 07:45; Stop 08/20/19 at 07:46; Status DC Ondansetron HCl (Zofran) 4 mg PRN Q8HRS PRN IV NAUSEA/VOMITING; Start 08/20/19 at 08:15; Stop 08/21/19 at 08:14; Status DC Nitroglycerin (Nitrostat) 0.4 mg PRN Q5MIN PRN SL CHEST PAIN; Start 08/20/19 at 08:15; Stop 08/21/19 at 08:14; Status DC Amlodipine Besylate (Norvasc) 5 mg 1X ONCE PO ; Start 08/20/19 at 10:00; Stop 08/20/19 at 10:17; Status DC Amlodipine Besylate (Norvasc) 5 mg DAILY PO ; Start 08/21/19 at 09:00; Stop 08/20/19 at 10:17; Status DC Multivitamins 10 ml/Thiamine HCl 100 mg/Folic Acid 1 mg/Sodium Chloride 1,011.2 ml @ 100 mls/ hr DAILY IV Last administered on 08/20/19at 10:51; Start 08/20/19 at 11:00; Stop 08/24/19 at 19:07 Lorazepam (Ativan Inj) 2 mg PRN Q1HR PRN IV For CIWA 8-14; Start 08/20/19 at 10:00 Lorazepam (Ativan Inj) 4 mg PRN Q1HR PRN IV For CIWA 15 or greater Last administered on 08/20/19at 21:50; Start 08/20/19 at 10:00 Potassium Chloride (Klor-Con) 40 meq 1X ONCE PO Last administered on 08/20/19at 10:52; Start 08/20/19 at 10:00; Stop 08/20/19 at 10:05; Status DC Enoxaparin Sodium (Lovenox Per Pharmacy Prophylaxis Dosing) 1 each PRN DAILY PRN MC SEE COMMENTS; Start 08/20/19 at 10:00 Enoxaparin Sodium (Lovenox 40mg Syringe) 40 mg Q24H SQ Last administered on 08/20/19at 10:52; Start 08/20/19 at 11:00 Clonidine HCl (Catapres) 0.1 mg PRN Q1HR PRN PO HYPERTENSION Last administered on 08/21/19at 04:10; Start 08/20/19 at 10:15 Amlodipine Besylate (Norvasc) 10 mg DAILY PO ; Start 08/21/19 at 09:00 Amlodipine Besylate (Norvasc) 10 mg 1X ONCE PO Last administered on 08/20/19at 10:52; Start 08/20/19 at 11:00; Stop 08/20/19 at 11:01; Status DC Pantoprazole Sodium (Protonix) 40 mg DAILYAC PO Last administered on 08/20/19at 10:52; Start 08/20/19 at 11:30 Magnesium Sulfate 50 ml @ 25 mls/hr 1X ONCE IV Last administered on 08/20/19at 13:05; Start 08/20/19 at 11:45; Stop 08/20/19 at 13:44; Status DC Nicotine (Nicoderm Cq 14mg) 1 patch DAILY TD Last administered on 08/20/19at 13:34; Start 08/20/19 at 14:00 Active Scripts Active Reported No Known Medications Prior To Admisstion (Info) Each 1 Each Vitals/I & O Vital Sign - Last 24 Hours 08/20/19 08/20/19 08/20/19 08/20/19 08:39 09:09 10:24 10:52 Temp 98.5 98.5 Pulse 74 82 79 79 Resp 20 20 18 B/P (MAP) 182/91 (121) 182/91 Pulse Ox 99 97 99 O2 Delivery Room Air 08/20/19 08/20/19 08/20/19 08/20/19 11:21 14:41 19:15 20:00 Temp 98.4 98.2 98.4 98.2 Pulse 98 85 Resp 18 20 B/P (MAP) 144/99 (114) 165/99 (121) Pulse Ox 98 97 O2 Delivery Room Air Room Air Room Air Room Air 08/20/19 08/21/19 08/21/19 08/21/19 23:05 03:30 04:10 07:00 Temp 98.3 98.2 97.9 98.3 98.2 97.9 Pulse 107 110 86 Resp 18 18 18 B/P (MAP) 139/97 (111) 159/105 (123) 159/105 150/105 (120) Pulse Ox 97 97 97 O2 Delivery Room Air Room Air Room Air Intake and Output 08/20/19 08/20/19 08/21/19 15:00 23:00 07:00 Intake Total 400 ml 800 ml Balance 400 ml 800 ml Justicifation of Admission Dx: Justifications for Admission: Justification of Admission Dx: Yes Hypertension: Symp at Rest JANETH MANTILLA MD Aug 21, 2019 08:28
[2019-08-21] MEDS ORDERED: amLODIPine BESYLATE 5 MG TABLET PO SCH (09:00)
[2019-08-21] MEDS: NICOTINE 14MG PATCH. TD SCH (09:00)
[2019-08-21] MEDS ORDERED: amLODIPine BESYLATE 10 MG TABLET PO SCH (09:00)
[2019-08-21] MEDS: MULTIVIT INFUSN,ADULT 4,VIT K 10 ML, THIAMINE INJ 100 MG, FOLIC ACID INJ 1 MG in IV NOR... IV SCH (09:00)
--- NOTE | 2019-08-21 09:23 | PDOC ---
FABIÁN WEBER MANUAL TRAINING TEACHER 08/21/19 0923: CARDIO Progress Notes Date and Time Date of Service 08/21/2019 Time of Evaluation 1010 Subjective Subjective: No Chest Pain, No shortness of breath, No Palpitations, Other (wanting to go home ) Vitals Vitals Vital Signs Date Time Temp Pulse Resp B/P (MAP) Pulse Ox O2 Delivery O2 Flow Rate FiO2 08/21/19 08:21 Room Air 08/21/19 07:00 97.9 86 18 150/105 (120) 97 97.9 Weight Weight [ ] Input and Output Intake and Output Intake and Output 08/21/19 07:00 Intake Total 1200 ml Balance 1200 ml Intake Oral 1200 ml # Voids 6 Laboratory Labs Laboratory Tests Test 08/20/19 12:40 08/20/19 18:25 08/21/19 00:10 08/21/19 04:07 Troponin I Quantitative < 0.017 ng/mL (0.000-0.055) < 0.017 ng/mL (0.000-0.055) < 0.017 ng/mL (0.000-0.055) Sodium Level 136 mmol/L (136-145) Potassium Level 4.8 mmol/L (3.5-5.1) Chloride Level 100 mmol/L (98-107) Carbon Dioxide Level 29 mmol/L (21-32) Anion Gap 7 (6-14) Blood Urea Nitrogen 10 mg/dL (8-26) Creatinine 1.0 mg/dL (0.7-1.3) Estimated GFR (Cockcroft-Gault) 80.4 Glucose Level 86 mg/dL (70-99) Calcium Level 8.4 mg/dL (8.5-10.1) Physical Exam HEENT: Neck Supple W Full Motion Chest: Symmetric LUNGS: Clear to Auscultation Heart: S1S2, RRR (SR), no gallops, no murmurs Abdomen: Soft N/T Extremities: No Edema, No Calf Tenderness Neurology: alert, oriented, follow commands Assessment Assessment 1. Chest pain: mixed features. possibly from uncontrolled BP and ETOH related GI irritation 2. HTN urgency: last use of lisinopril was 1.5 yrs ago. BP improved 3. Alcohol abuse: +for binge hard liqour and daily 6 pack beer 4. Tobaccoism 5. Marijuana use 6. Hypomagnesemia/hyponatremia/hypokalemia: resolved 7. Anion gap metabolic acidosis: r/t ETOH, resolved 8. Syncope with nontraumatic fall: possibly from HTN encephalopathy and ETOH abuse. Recommendations 1. CIWA protocol per PCP 2. Discussed lifestyle modifications 3. Agree with norvasc. Monitor BP trend. Clonidine PRN. Encouraged HBPM 4. Await TTE. Will consider for outpt stress test. Follow up October 15 at 9:15 AM Justicifation of Admission Dx: Justifications for Admission: Justification of Admission Dx: Yes Hypertension: Symp at Rest ALKA SANDOVAL MD 08/21/19 2252: CARDIO Progress Notes Attending Co-Sign The patient was seen and interviewed as well as examined at the bedside. The chart was reviewed. The case was discussed. Agree with the plan of care. FABIÁN WEBER APRN Aug 21, 2019 09:23 ALKA SANDOVAL MD Aug 21, 2019 22:52
[2019-08-21] MEDS: PANTOPRAZOLE 40 MG TABLET.DR. PO SCH (09:54)
[2019-08-21] MEDS: ENOXAPARIN 40 MG/0.4 ML SYRINGE. SQ SCH (10:17)
--- NOTE | 2019-08-21 10:26 | NUR ---
SS following for discharge planning. SS reviewed pt chart and discussed with pt RN. Pt is from home and is currently on room air. Pt has ETOH and positive for THC. Per RN, pt reports drinking a six pack of beer per day in addition to hard liquor daily. PAT team referral made for assessment and recommendations. SS will continue to follow for discharge planning.
[2019-08-21 11:00] VITALS: BP 168/113
[2019-08-21] MEDS ORDERED: PANT40TA77 PO (11:24)
[2019-08-21] MEDS ORDERED: AMLO10TA8 PO (11:24)
--- NOTE | 2019-08-21 11:28 | PDOC3 ---
Discharge Summary Visit Information Date of Admission: Aug 20, 2019 Date of Discharge: Aug 21, 2019 Admitting Diagnosis: Chest Pain Final Diagnosis Problems Medical Problems: (1) Chest pain Status: Acute (2) Hypertension Status: Acute Brief Hospital Course Allergies Allergies Coded Allergies Type Severity Reaction Last Updated Verified No Known Drug Allergies 08/20/19 No Vital Signs Vital Signs Date Time Temp Pulse Resp B/P (MAP) Pulse Ox O2 Delivery O2 Flow Rate FiO2 08/21/19 09:54 91 158/105 08/21/19 08:21 Room Air 08/21/19 07:00 97.9 18 97 97.9 Lab Results Laboratory Tests Test 08/20/19 05:18 08/20/19 05:55 08/20/19 12:40 08/20/19 18:25 White Blood Count 10.4 x10^3/uL (4.0-11.0) Red Blood Count 4.71 x10^6/uL (4.30-5.70) Hemoglobin 15.7 g/dL (13.0-17.5) Hematocrit 44.3 % (39.0-53.0) Mean Corpuscular Volume 94 fL (79-100) Mean Corpuscular Hemoglobin 33 pg (25-35) Mean Corpuscular Hemoglobin Concent 35 g/dL (31-37) Red Cell Distribution Width 13.2 % (11.5-14.5) Platelet Count 214 x10^3/uL (140-400) Neutrophils (%) (Auto) 86 % (31-73) Lymphocytes (%) (Auto) 10 % (24-48) Monocytes (%) (Auto) 4 % (0-9) Eosinophils (%) (Auto) 0 % (0-3) Basophils (%) (Auto) 0 % (0-3) Neutrophils # (Auto) 8.9 x10^3/uL (1.8-7.7) Lymphocytes # (Auto) 1.0 x10^3/uL (1.0-4.8) Monocytes # (Auto) 0.4 x10^3/uL (0.0-1.1) Eosinophils # (Auto) 0.0 x10^3/uL (0.0-0.7) Basophils # (Auto) 0.0 x10^3/uL (0.0-0.2) Segmented Neutrophils % 82 % (35-66) Lymphocytes % 13 % (24-48) Monocytes % 5 % (0-10) Platelet Estimate Adequate (ADEQUATE) Prothrombin Time 12.6 SEC (11.7-14.0) Prothromb Time International Ratio 1.0 (0.8-1.1) Sodium Level 129 mmol/L (136-145) Potassium Level 3.4 mmol/L (3.5-5.1) Chloride Level 91 mmol/L (98-107) Carbon Dioxide Level 23 mmol/L (21-32) Anion Gap 15 (6-14) Blood Urea Nitrogen 3 mg/dL (8-26) Creatinine 1.0 mg/dL (0.7-1.3) Estimated GFR (Cockcroft-Gault) 80.4 BUN/Creatinine Ratio 3 (6-20) Glucose Level 128 mg/dL (70-99) Calcium Level 8.2 mg/dL (8.5-10.1) Magnesium Level 1.5 mg/dL (1.8-2.4) Total Bilirubin 0.2 mg/dL (0.2-1.0) Aspartate Amino Transf (AST/SGOT) 58 U/L (15-37) Alanine Aminotransferase (ALT/SGPT) 58 U/L (16-63) Alkaline Phosphatase 85 U/L (46-116) Troponin I Quantitative < 0.017 ng/mL (0.000-0.055) < 0.017 ng/mL (0.000-0.055) < 0.017 ng/mL (0.000-0.055) YU-Bsi-O-Type Natriuretic Peptide 50 pg/mL (0-124) Total Protein 6.9 g/dL (6.4-8.2) Albumin 3.3 g/dL (3.4-5.0) Albumin/Globulin Ratio 0.9 (1.0-1.7) Triglycerides Level 64 mg/dL (0-150) Cholesterol Level 144 mg/dL (0-200) LDL Cholesterol, Calculated 84 mg/dL (0-100) VLDL Cholesterol, Calculated 13 mg/dL (0-40) Non-HDL Cholesterol Calculated 97 mg/dL (0-129) HDL Cholesterol 47 mg/dL (40-60) Cholesterol/HDL Ratio 3.1 Lipase 180 U/L (73-393) Thyroid Stimulating Hormone (TSH) 3.775 uIU/mL (0.358-3.74) Urine Collection Type Unknown Urine Color Yellow Urine Clarity Clear Urine pH 7.0 (<5.0-8.0) Urine Specific [place] 1.015 (1.000-1.030) Urine Protein Negative mg/dL (NEG-TRACE) Urine Glucose (UA) Negative mg/dL (NEG) Urine Ketones (Stick) Negative mg/dL (NEG) Urine Blood Negative (NEG) Urine Nitrite Negative (NEG) Urine Bilirubin Negative (NEG) Urine Urobilinogen Dipstick 1.0 mg/dL (0.2 mg/dL) Urine Leukocyte Esterase Negative (NEG) Urine RBC 0 /HPF (0-2) Urine WBC Occ /HPF (0-4) Urine Bacteria 0 /HPF (0-FEW) Urine Mucus Slight /LPF Urine Opiates Screen Neg (NEG) Urine Methadone Screen Neg (NEG) Urine Barbiturates Neg (NEG) Urine Phencyclidine Screen Neg (NEG) Urine Amphetamine/Methamphetamine Neg (NEG) Urine Benzodiazepines Screen Neg (NEG) Urine Cocaine Screen Neg (NEG) Urine Cannabinoids Screen Pos (NEG) Urine Ethyl Alcohol Pos (NEG) Test 08/21/19 00:10 08/21/19 04:07 Troponin I Quantitative < 0.017 ng/mL (0.000-0.055) Sodium Level 136 mmol/L (136-145) Potassium Level 4.8 mmol/L (3.5-5.1) Chloride Level 100 mmol/L (98-107) Carbon Dioxide Level 29 mmol/L (21-32) Anion Gap 7 (6-14) Blood Urea Nitrogen 10 mg/dL (8-26) Creatinine 1.0 mg/dL (0.7-1.3) Estimated GFR (Cockcroft-Gault) 80.4 Glucose Level 86 mg/dL (70-99) Calcium Level 8.4 mg/dL (8.5-10.1) Magnesium Level 2.5 mg/dL (1.8-2.4) Laboratory Tests Test 08/20/19 12:40 08/20/19 18:25 08/21/19 00:10 08/21/19 04:07 Troponin I Quantitative < 0.017 ng/mL (0.000-0.055) < 0.017 ng/mL (0.000-0.055) < 0.017 ng/mL (0.000-0.055) Sodium Level 136 mmol/L (136-145) Potassium Level 4.8 mmol/L (3.5-5.1) Chloride Level 100 mmol/L (98-107) Carbon Dioxide Level 29 mmol/L (21-32) Anion Gap 7 (6-14) Blood Urea Nitrogen 10 mg/dL (8-26) Creatinine 1.0 mg/dL (0.7-1.3) Estimated GFR (Cockcroft-Gault) 80.4 Glucose Level 86 mg/dL (70-99) Calcium Level 8.4 mg/dL (8.5-10.1) Magnesium Level 2.5 mg/dL (1.8-2.4) Brief Hospital Course Mr. Gilmore, is a 48 yo M w/ PMHx smoker, HTN admit from ER for new numbness and tingling to his left upper arm. Patient states that the symptoms started at 4:00 the morning of 08/20/2019, while he was at work, woks at [employer] for an [employer] in [place]. He went out for a small break of nicotine when the symptoms started. Patient states that he has a history of high blood pressure but has not taken medication for the last 2 years as his PCP moved out of town. Recent life change, his left him in the last 4 months and his car broke down, and he commutes from [place], [place] to [place] for work. Patient does admit to being an active smoker and drinks alcohol daily. Numbness and tingling resolved. Troponin x3- EKG WNL BP improved with initiation of amlodipine. His chest pain resolved with initiation of pantoprazole. He had echocardiogram this morning and is a bit anxious to leave the hospital not he feels improved. Problem list: left arm tingling and weakness accelerated htn arm pain, r/o acs, consult CV anxiety disorder, no meds, self medicating substance abuse disorder, very heavy daily alcohol use adjustment disorder, his just left him, likely due to alcohol use, which has resulted in more alcohol use tobacco use disorder Greater than 30 minutes spent on d/c Discharge Information Condition at Discharge: Improved Follow Up: Weeks (1) Disposition/Orders: D/C to Home Scheduled Amlodipine Besylate (Amlodipine Besylate) 10 Mg Tablet, 10 MG PO DAILY for HTN for 90 Days, #90 Ref 3 Prescribed by: JANETH MANTILLA MD on 08/21/191123 Info (No Known Medications Prior To Admisstion) Each, 1 EACH for , (Reported) Entered as Reported by: ALIVIA GRAY RN on 08/20/191608 Last Action: New Order on 08/20/191608 by ALIVIA GRAY RN Pantoprazole Sodium (Pantoprazole Sodium ) 40 Mg Tablet.dr, 40 MG PO DAILYAC for GERD for 90 Days, #90 Ref 1 Prescribed by: JANETH MANTILLA MD on 08/21/19 112 Justicifation of Admission Dx: Justifications for Admission: Justification of Admission Dx: Yes Hypertension: Symp at Rest JANETH MANTILLA MD Aug 21, 2019 11:28
--- NOTE | 2019-08-21 11:47 | CARD ---
MR#: [id number] Date of Study: 08/21/2019 Ordering Physician: FABIÁN WEBER, Referring Physician: FABIÁN WEBER, Tech: Sophia German [facility] APPROVED REPORT EXAM: Two-dimensional and M-mode echocardiogram with Doppler and color Doppler. Other Information Quality : Good INDICATION Chest Pain 2D DIMENSIONS RVDd3.1 (2.9-3.5cm)Left Atrium(2D)2.6 (1.6-4.0cm) IVSd1.0 (0.7-1.1cm)Aortic Root(2D)3.5 (2.0-3.7cm) LVDd4.3 (3.9-5.9cm)LVOT Diameter2.0 (1.8-2.4cm) PWd1.1 (0.7-1.1cm)LVDs2.8 (2.5-4.0cm) FS (%) 35.4 %SV53.9 ml LVEF(%)65.1 (>50%) Aortic Valve AoV Peak Addison.104.7cm/sAoV VTI14.5cm AO Peak GR.4.4mmHgLVOT Peak Addison.92.8cm/s AO Mean GR.2mmHgAVA (VMAX)2.81cm2 RIVER (VTI)2.90cm2 Mitral Valve MV E Npmyjvpp60.4cm/sMV DECEL [id number] MV A Fvmpnyzo09.0cm/sE/A Ratio0.7 Pulmonary Vein S1 Jeemutju50.0cm/sD2 Dyrigjzj64.3cm/s LEFT VENTRICLE The left ventricle is normal size. There is normal left ventricular wall thickness. The left ventricu lar systolic function is normal and the ejection fraction is within normal range. The Ejection Fracti on is 60-65%. There is normal LV segmental wall motion. Transmitral Doppler flow pattern is Grade I-a bnormal relaxation pattern. RIGHT VENTRICLE The right ventricle is normal size. The right ventricular systolic function is normal. ATRIA The left atrium size is normal. The right atrium size is normal. The interatrial septum is intact wit h no evidence for an atrial septal defect or patent foramen ovale as noted on 2-D or Doppler imaging. AORTIC VALVE The aortic valve is calcified but opens well. Doppler and Color Flow revealed no significant aortic r egurgitation. There is no significant aortic valvular stenosis. MITRAL VALVE The mitral valve is normal in structure and function. There is no evidence of mitral valve prolapse. There is no mitral valve stenosis. Doppler and Color Flow revealed no mitral valve regurgitation note d. TRICUSPID VALVE The tricuspid valve is normal in structure and function. Doppler and Color Flow revealed no tricuspid valve regurgitation noted. There is no tricuspid valve stenosis. PULMONIC VALVE Doppler and Color Flow revealed trace pulmonic valvular regurgitation. There is no pulmonic valvular stenosis. GREAT VESSELS The aortic root is normal in size. The ascending aorta is normal in size. The IVC is normal in size a nd collapses >50% with inspiration. PERICARDIAL EFFUSION There is no evidence of significant pericardial effusion. Critical Notification Critical Value: No <Conclusion> The left ventricular systolic function is normal and the ejection fraction is within normal range. Th e Ejection Fraction is 60-65%. There is normal LV segmental wall motion. Signed by : Benjamin Bess, Electronically Approved : 08/21/2019 11:46:56
--- NOTE | 2019-08-21 12:07 | NUR ---
Discharge Note: KENYETTA GIL Discharge instructions and discharge home medications reviewed with Patient and a copy given. All questions have been answered and understanding verbalized. The following instructions and handouts were given: HTN, Alcohol Resources Discontinued lines and drains: Peripheral IV intact. Patient discharged to Home or Self Care with wheelchair van Personnel via Wheelchair
== END 2019-08-21 12:24 | disposition home or self-care (01) | DRG 305 ==
LOC: ER 05:07 → 2 SOUTH 08:04 → 2 NORTH 18:16
PROVIDERS: ADMIT Internal Medicine; ATTEND Internal Medicine
DX: I16.0 Hypertensive urgency (principal); E87.1 Hypo-osmolality and hyponatremia; E87.2 Acidosis; I10 Essential (primary) hypertension; F17.210 Nicotine dependence, cigarettes, uncomplicated; F43.22 Adjustment disorder with anxiety; M19.90 Unspecified osteoarthritis, unspecified site; F10.10 Alcohol abuse, uncomplicated; F19.10 Other psychoactive substance abuse, uncomplicated; F12.90 Cannabis use, unspecified, uncomplicated; E83.42 Hypomagnesemia; E87.6 Hypokalemia; W19.XXXA Unspecified fall, initial encounter; Y93.89 Activity, other specified; Y92.89 Other specified places as the place of occurrence of the external cause; Y99.8 Other external cause status; Z82.49 Family history of ischemic heart disease and other diseases of the circulatory system
CPT/HCPCS: 36415; 70450; 71045; 80048; 80053; 80061; 80307; 81001; 83690; 83735; 83880; 84443; 84484; 85007; 85025; 85610; 93005; 93306; 96374; 96376; J0360; J1650; J2060; J3411; J3475; J3490; J7030; 99285-25; G0378